=== PATIENT | male | born 1960 | race Caucasian/White ===

== ENCOUNTER 2016-11-16 10:31 | Emergency (ER) | payer OTHER ==
[2016-11-16 11:48] LABS: HEMOGLOBIN 13.7 gm/dl (14.0-17.5); RED BLOOD COUNT 4.38 M/UL (4.20-5.50); WHITE BLOOD COUNT 15.8 K/UL (4.5-11.0)
[2016-11-16 12:13] LABS: BUN/CREATININE RATIO 24 (0-10)
== END 2016-11-16 15:35 | disposition short-term general hospital (02) ==
LOC: ER1 10:31
PROVIDERS: Emergency Medicine
DX: S27.2XXA Traumatic hemopneumothorax, initial encounter (principal); S22.32XA Fracture of one rib, left side, initial encounter for closed fracture; V19.9XXA Pedal cyclist (driver) (passenger) injured in unspecified traffic accident, initial encounter; Y93.55 Activity, bike riding; Z23 Encounter for immunization; Z88.5 Allergy status to narcotic agent
CPT/HCPCS: 71010; 71260; 80053; 84484; 85025; 93005; 99285; J2270; J2405; J7030; J7050; Q9962